=== PATIENT | female | born 1980 | race Caucasian/White ===

== ENCOUNTER 2018-08-04 05:08 | Inpatient (IN) | payer MEDICAID, OTHER ==
[2018-08-04] MEDS: LACTATED RINGERS 1,000 ML IV SCH ×3 (05:32→08:30)
[2018-08-04] MEDS ORDERED: SUBLIMAZE IV PRN (06:35)
[2018-08-04 06:38] LABS: Hemoglobin 12.6 gm/dl (10.1-14.3); Red Blood Count 4.11 M/mm3 (3.65-5.03)
[2018-08-04 06:39] LABS: Basophils % (Auto) 0.2 % (0.0-1.8); Eosinophils # (Auto) 0.1 K/mm3 (0.0-0.4); Eosinophils % (Auto) 0.8 % (0.0-4.3); Hematocrit 37.5 % (30.3-42.9); Lymphocytes % (Auto) 22.7 % (13.4-35.0); Mean Corpuscular HGB Conc 34 % (30-34); Mean Corpuscular Volume 91 fl (79-97); Monocytes # (Auto) 0.7 K/mm3 (0.0-0.8); Monocytes % (Auto) 5.3 % (0.0-7.3); Platelet Count 241 K/mm3 (140-440); Red Cell Distribution Width 14.5 % (13.2-15.2)
[2018-08-04 06:42] LABS: Bilirubin,Urine Negative (Negative); Blood,Urine Moderate (Negative); Color,Urine Yellow (Yellow); Protein,Urine <15 mg/dL mg/dL (Negative); Urobilinogen,Urine < 2.0 mg/dL (<2.0)
[2018-08-04] MEDS ORDERED: PITOCin/NS 20 UNIT/1000ML DRIP 20,000 MILLIUNITS/1,000 ML BAG IV ONE (06:48)
--- NOTE | 2018-08-04 08:04 | History and Physical Report ---
History of Present Illness Date of examination: 08/04/18 Date of admission: 08/04/18 06:16 Chief complaint: Contractions History of present illness: 38 yo Fe , SAULO 08/15/2018, 38 weeks 3 days, presents in spontaneous labor. O positive, Rubella Immune, GBS Negative. Pt initiated early care with [facility] at 8 weeks gestation. She is AMA (38 yo) and Gestational Diabetic (Glyburide 5mg PO BID; co-managed with [facility]). Past History Past Medical History: diabetes (GDM this , Co-managed with [facility]. 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 denies: smoking, alcohol abuse, prescription drug abuse, IV drug use - Obstetrical History Expected Date of Delivery: 08/15/18 Actual Gestation: 38 Week(s) 3 Day(s) : 6 Para: 4 Hx # Term Pregnancies: 4 Number of Pregnancies: 0 Spontaneous Abortions: 1 Induced : 0 Number of Living Children: 4 #1 Gender: Female year: 1,997 Method of Delivery: Vaginal Gestational age at delivery: 40 Complications: none #2 Gender: Male year: 2,000 Method of Delivery: Vaginal Gestational age at delivery: 38 Complications: none #3 Infant Gender: Male year: 2,001 Method of Delivery: Vaginal Gestational age at delivery: 38 Complications: none #4 Infant Gender: Male year: 2,007 Method of Delivery: Vaginal Gestational age at delivery: 38 Complications: none Medications and Allergies Allergies Allergy/AdvReac Type Severity Reaction Status Date / Time No Known Allergies Allergy Verified 08/04/18 05:45 Home Medications Medication Instructions Recorded Confirmed Last Taken Type Cyclobenzaprine [Flexeril] 10 mg PO TID PRN #15 tablet 10/21/13 Unknown Rx traMADol [Ultram] 50 mg PO Q4HR PRN #15 tablet 10/21/13 Unknown Rx Acetaminophen/Codeine [Tylenol #3] 1 tab PO Q6H PRN #20 tab 08/17/15 Unknown Rx Cyclobenzaprine [Flexeril] 10 mg PO TID PRN #30 tablet 08/17/15 Unknown Rx Ibuprofen [Motrin] 600 mg PO Q8H PRN #40 tablet 08/17/15 Unknown Rx Active Meds: Active Medications Fentanyl (Sublimaze) 100 mcg IV Q2HR PRN PRN Reason: Pain , Severe (7-10) Stop: 08/05/18 06:34 Last Admin: 08/04/18 06:45 Dose: 100 mcg Documented by: Lactated Ringer's (Lactated Ringers) 1,000 mls @ 125 mls/hr IV DIRECT YEE Last Admin: 08/04/18 06:48 Dose: 125 mls/hr Documented by: Review of Systems Eyes: normal appearance Cardiovascular: no chest pain, no shortness of breath Respiratory: no shortness of breath Breasts: normal Gastrointestinal: no nausea, no vomiting, no diarrhea, no constipation Genitourinary: normal appearance, contractions, no vaginal bleeding, no leakage of fluid, no genital sores Integumentary: no rash, no sores, no lesions - Vital Signs Vital signs: Vital Signs Pulse BP 91 H 118/69 08/04/18 05:19 08/04/18 05:19 Temp Pulse Resp BP Pulse Ox 102 H 106/56 89 08/04/18 07:57 08/04/18 07:22 08/04/18 07:57 - Physical Exam Breasts: Positive: normal Cardiovascular: Regular rate, Normal S1, Normal S2, No murmurs Lungs: Positive: Clear to auscultation, Normal air movement Abdomen: Positive: normal appearance, soft, normal bowel sounds Genitourinary (Female): Positive: normal external genitalia, normal perenium Vulva: both: normal Vagina: Positive: normal moisture Uterus: Positive: enlarged (Gravid, S>D) Anus/Rectum: Positive: normal perianal skin Extremities: Positive: normal Deep Tendon Reflex Grade: Normal +2 - Obstetrical FHR: category 1 Uterine Contraction Monitor Mode: External Cervical Dilatation: 8 (2 on admission per refinery operator helper crude unit) Cervical Effacement Percentage: 75 station: 0 Uterine Contraction Frequency (min): 2 Uterine Contraction Duration: 90 Uterine Contraction Pattern: Regular Uterine Tone Measurement Phase: Resting Uterine Contraction Intensity: Strong/Firm Results Result Diagrams: 08/04/18 05:52 Abnormal lab results 08/04/18 08/04/18 Range/Units 05:52 05:52 WBC 13.0 H (4.5-11.0) K/mm3 Seg Neutrophils % 71.0 H (40.0-70.0) % Seg Neutrophils # 9.2 H (1.8-7.7) K/mm3 Urine Blood Moderate A (Negative) Urine WBC (Auto) 10.0 H (0.0-6.0) /HPF All other labs normal. Assessment and Plan A: Term IUP at 38 weeks 3 days GBS positive GDM: Glyburide 5mg BID Category 1 tracing Active labor P: Admit to L&D; Routine labor orders GBS prophylaxis May have IV pain med/epidural PRN Check BS on admission Pitocin Augmentation Anticipate
[2018-08-04] MEDS ORDERED: SENSORCAINE/DEXTR 0.75-8.25% INFILTRATI ONE (08:22)
[2018-08-04] MEDS ORDERED: XYLOCAINE 2%/ EPI 1:200,000 INFILTRATI ONE (08:22)
[2018-08-04] MEDS ORDERED: PITOCin/NS 30 UNIT/500ML 30 UNITS/500 ML BAG IV SCH (09:00)
[2018-08-04] MEDS ORDERED: MINERAL OIL PO PRN (09:00)
[2018-08-04] MEDS ORDERED: LACTATED RINGERS 1,000 ML IV SCH (09:00)
[2018-08-04] MEDS ORDERED: XYLOCAINE 2% INFILTRATI NR (09:00)
[2018-08-04] MEDS ORDERED: fentaNYL-BUPIV 2 MCG/ML-0.125% 200 MCG/100 ML BAG EPIDURAL SCH (09:30)
[2018-08-04] MEDS ORDERED: PITOCin/NS 20 UNIT/1000ML DRIP 20 UNITS/1,000 ML BAG IV SCH (09:30)
[2018-08-04] MEDS ORDERED: BRETHINE SUB-Q PRN (09:30)
[2018-08-04] MEDS ORDERED: ZOFRAN IV PRN (09:30)
[2018-08-04] MEDS ORDERED: NARCAN 0.4 MG/1 ML IV PRN (09:30)
[2018-08-04] MEDS ORDERED: NARCAN 2 MG/2 ML IV PRN (10:00)
[2018-08-04] MEDS ORDERED: BRETHINE IVP PRN (10:00)
[2018-08-04] MEDS ORDERED: BENADRYL PO PRN (10:16)
--- NOTE | 2018-08-04 10:37 | Procedure Note ---
OB Delivery Note - Delivery Date of Delivery: 08/04/18 (0952) Surgeon: JIM CARNEY Glass Etcher Helper: FABIAN ALMAZAN Estimated blood loss: 200cc - Vaginal Delivery presentation: vertex Delivery position: OA Intrapartum events: other(please specify) (Pregestational DM) Delivery induction: none Delivery augmentation: rupture of membranes, pitocin Delivery monitor: external FHT, external uterine Route of delivery: Delivery placenta: spontaneous Delivery cord: nuchal cord, 3 umbilical vessels Episiotomy: none Delivery laceration: none Anesthesia: epidural Delivery comments: Arrived to room to fully dilated female ready to push. at 0952 of viable female with nuchal cord x1, reduced at perineium. Intact perineum. Baby placed [id number]. Placenta delivered spontaneous at 1002, intact, burnette, 3 cord vessel. Fundus firm @ U. EBL-200mls. Cord clamped by FOB after cord pulsation ceased. Mother and baby bonding well. Cord blood collected; Placenta discarded. - Infant A at 1 minute: 8 at 5 minutes: 9 Infant Gender: Female (7'13)
[2018-08-04] MEDS ORDERED: SODIUM CHLORIDE FLUSH SYRINGE 10 ML IV SCH (11:00)
[2018-08-04] MEDS: IBUPROFEN PO SCH (14:16)
[2018-08-04] MEDS: PERCOCET 5/325 PO PRN (16:15)
[2018-08-04 22:50] LABS: Hematocrit 33.6 % (30.3-42.9); Hemoglobin 11.1 gm/dl (10.1-14.3)
[2018-08-05] MEDS: IBUPROFEN PO SCH ×3 (00:35→15:46)
--- NOTE | 2018-08-05 11:13 | Progress Note ---
Assessment and Plan A: PPD#1 s/p Stable P: Routine PP orders Undecided on contraception Anticipate discharge home today pending peds Subjective - Subjective Date of service: 08/05/18 Interval history: 38 yo Fe , SAULO 08/15/2018, 38 weeks 3 days, 08/04/18 @ 0952 Patient reports: appetite normal, voiding normally, pain well controlled, flatus, ambulating normally, no bowel movement : doing well, nursing well Objective - Vital Signs Latest vital signs: Vital Signs Temp Pulse Resp BP BP Pulse Ox 08/05/18 07:53 98.5 F 61 18 95/56 08/05/18 00:43 98.5 F 60 18 90/52 08/05/18 00:35 18 08/04/18 20:05 97.7 F 61 16 98/54 08/04/18 16:21 98.0 F 64 24 92/40 96 08/04/18 12:42 98.9 F 85 18 99/47 96 08/04/18 11:56 87 101/55 08/04/18 11:42 91 H 92/54 08/04/18 11:26 78 116/55 Intake and Output 08/04/18 08/05/18 08/05/18 23:59 07:59 15:59 Intake Total 240 420 240 Output Total 1600 Balance -1360 420 240 Intake: Oral 240 Intake, Free Water 240 420 Output: Urine 1600 Void 1600 Other: Total, Intake Amount 240 Total, Output Amount 800 # Voids Void 1 1 - Exam Breasts: Present: normal, Cardiovascular: Present: Regular rate, Normal S1, Normal S2, No murmurs Lungs: Present: Clear to auscultation, Normal air movement Abdomen: Present: normal appearance, soft, normal bowel sounds. Absent: distention Vulva: both: normal Uterus: Present: normal, firm, fundal height below umbilicus (-2) Extremities: Present: normal - Labs Labs: Abnormal lab results 08/04/18 08/04/18 Range/Units 17:34 22:01 POC Glucose 216 H 133 H (70-105)
--- NOTE | 2018-08-05 11:15 | Discharge Summary ---
Providers - Providers Date of Admission: 08/04/18 06:16 Date of discharge: 08/05/18 Attending physician: SIENNA MITCHELL MD Primary care physician: SIENNA MITCHELL MD Hospitalization Reason for admission: active labor, IUP at term Delivery: Procedure details: See H&P and delivery note Episiotomy: none Laceration: none Other procedures: none complications: none Discharge diagnosis: IUP at term delivered baby: female Condition at discharge: Good Disposition: DC-01 TO HOME OR SELFCARE Plan - Provider Discharge Summary Activity: routine, no sex for 6 weeks, no heavy lifting 4 weeks, no strenuous exercise Diet: routine Instructions: routine Additional instructions: [] Smoking cessation referral if applicable(refer to patient education folder for contact #) [] Refer to [facility]'s [facility] Booklet Call your doctor immediately for: * Fever > 100.5 * Heavy vaginal bleeding ( >1 pad per hour) * Severe persistent headache * Shortness of breath * Reddened, hot, painful area to leg or breast * Drainage or odor from incision. * Keep incision clean and dry at all times and follow doctor's instructions regarding bathing/showering - Follow up plan Follow up: SIENNA MITCHELL MD [Primary Care Provider] - 6 Weeks
[2018-08-05 12:46] VITALS: BP 99/48
[2018-08-05] MEDS: PERCOCET 5/325 PO PRN (15:46)
[2018-08-05] MEDS ORDERED: DERMOPLAST TP PRN (15:49)
[2018-08-05] MEDS ORDERED: TUCKS PAD TP PRN (15:51)
== END 2018-08-05 18:40 | disposition home or self-care (01) | DRG 807 ==
LOC: TRG 05:08 → LD 06:16 → OB 12:25
PROVIDERS: ADMIT Obstetrics & Gynecology; ATTEND Obstetrics & Gynecology
PROC: 10E0XZZ Delivery of Products of Conception, External Approach (ICD-10-PCS; principal; 2018-08-04)
PROC: 3E0R3BZ Introduction of Anesthetic Agent into Spinal Canal, Percutaneous Approach (ICD-10-PCS; 2018-08-04)
PROC: 00HU33Z Insertion of Infusion Device into Spinal Canal, Percutaneous Approach (ICD-10-PCS; 2018-08-04)
DX: O24.429 Gestational diabetes mellitus in childbirth, unspecified control (principal); Z37.0 Single live birth; O69.81X0 Labor and delivery complicated by cord around neck, without compression, not applicable or unspecified; O99.824 Streptococcus B carrier state complicating childbirth; Z3A.38 38 weeks gestation of pregnancy; Z79.84 Long term (current) use of oral hypoglycemic drugs; Z79.899 Other long term (current) drug therapy
CPT/HCPCS: 36415; 81001; 82962; 85014; 85018; 85025; 86850; 86900; 86901; G0378; J2590; J3010; J7120